=== PATIENT | male | born 1955 | race Caucasian/White ===

== ENCOUNTER 2017-02-01 05:20 | Inpatient (IN) | payer OTHER ==
--- NOTE | 2017-01-29 04:46 | PREOPHP ---
DATE OF ADMISSION: 02/01/2017 The patient is to have surgey with Dr. Oneal at [facility] on 02/01/2017. REASON FOR CONSULTATION: Consultation requested by Dr. Fantasma Oneal for medical evaluation and clearance of a 61-year-old gentleman about to undergo surgery. Thank you Dr. Oneal for allowing us to participate in care of this patient. HISTORY OF PRESENT ILLNESS: Hal Oleary is a 61-year-old gentleman, issues with his left hip had repair of a torn labrum arthroscopically done in 2016, which helped for a while but has been bothering him ever since, and currently is being admitted for a total hip replacement on the left side. PAST SURGICAL HISTORY: Has included appendectomy, the above- mentioned arthroscopic surgery, tonsil and adenoid surgery, a skin graft, a lymph node biopsy, skin cancers removed, as well as a varicocele surgery. He has fractured his right hand. PRIOR HOSPITALIZATIONS: The patient has had no medical hospitalizations. MEDICATIONS: Include the following: Prilosec, Lodine, Flexeril, and periodic pain pills. ALLERGIES: HE IS ALLERGIC OR SENSITIVE TO MORPHINE. SOCIAL HISTORY: The patient is , has 3 daughters and 2 grandchildren. He does not smoke. He drinks alcohol socially. He does drink coffee. He has no difficulty sleeping at night. Currently he is not working. FAMILY HISTORY: Father is alive at 86. He has heart issues and failure. Mother at age 67 of breast cancer and its complications, she also had some heart issues. Two siblings are in good health and alive and well. There is a family history of diabetes, heart cancer, hypertension and stroke. No thyroid issues to his knowledge. REVIEW OF SYSTEMS: HEENT: Has periodic tension headaches. CARDIORESPIRATORY: Denies any significant chest pain; however, does get some dyspepsia. No palpitations or orthopnea. GASTROINTESTINAL: No melena or hematemesis; however, signs and symptoms of hyperacidity. GENITOURINARY: No urgency or frequency. MUSCULOSKELETAL: Positive for left hip pain. NEUROPSYCHIATRIC: Unremarkable. GENERAL HEALTH: As above. PHYSICAL EXAMINATION: VITAL SIGNS: Blood pressure 120/80, pulse 86 and regular, respirations 17, temperature 97.9, height 5 feet 6 inches, weight 174 pounds. GENERAL APPEARANCE: The patient was noted to be a well-developed and well-nourished male, alert and cooperative in no apparent acute distress, oriented to time, place and person. HEENT: Head was atraumatic. The eyes, pupils were equal and reactive to light and accommodation. Fundi were benign. Tympanic membranes were unremarkable. Nose was negative. Mouth was unremarkable. Fair oral hygiene was present. NECK: Was supple without any rigidity. Trachea was midline. Thyroid was unremarkable. Neck veins were flat. Carotid pulses were equal. No bruits were heard. BACK: Back exam was unremarkable. CARDIAC: Chest was symmetrical. BREAST: Breast and axillary exam did not reveal any masses. LUNGS: Clear to percussion and auscultation. HEART: Examination of the heart PMI was at the fifth intercostal space at the midclavicular line. A regular sinus rhythm was noted. No significant murmurs, rubs or gallops being elicited. ABDOMEN: Soft. Good bowel sounds were noted. No significant organomegaly, masses or tenderness. Scar from prior surgery was noted. GENITALIA: Normal male external genitalia. RECTAL: Rectal and prostatic exam per PCP. EXTREMITIES: Did not reveal any clubbing, edema or cyanosis. Peripheral pulses were physiologic. SKIN: Moist and warm without any eruptions. No gross lymphadenopathy was noted. NEUROLOGIC: Grossly intact. DIAGNOSTICS: Review of laboratory and other data revealed the following: The patient's chemistry panel including electrolytes, BUN and creatinine were normal. Liver function tests were basically normal. Random glucose was 126. CBC, UA, PT and PTT were normal. The patient's EKG was normal as was his chest x- ray, and bladder residual was around 50 mL post void. IMPRESSION: 1. Degenerative joint disease left hip. 2. Gastroesophageal reflux disease. 3. History of skin cancers. 4. Stable health. DISCUSSION: Dr. Oneal, I see no contraindications to the patient undergoing current proposed surgery under desired form of anesthesia and feel he is a suitable candidate at this particular point in time, and I will be more than happy to follow him with you during his stay at [facility]. Thank you again Dr. Oneal for allowing us to participate in care of this patient. Dictated By: Parth Rosas MD /meliton/monty /Document#: [id number]
[~2017-02-01] VITALS: Ht 167.6 cm; Wt 78.8 kg
[2017-02-01] VITALS (34 sets, daily range): BP systolic 116–171; BP diastolic 56–83; PULSE 42–64; RESP 8–20; Ht 167.6 cm; Wt 78.8 kg
[2017-02-01] MEDS ORDERED: ETOD500T PO (05:43)
[2017-02-01] MEDS ORDERED: OMEP40CA6 PO (05:43)
[2017-02-01] MEDS ORDERED: HYDR2TAB36 PO (05:43)
[2017-02-01] MEDS ORDERED: GABAPENTIN 300 MG CAP PO ONE (06:00)
[2017-02-01] MEDS ORDERED: TRANEXAMIC ACID 1,000 MG in SOD CHLORIDE 0.9% 100 ML IVPB ONE (06:00)
[2017-02-01] MEDS ORDERED: DEXAMETHASONE 1 MG TAB PO ONE (06:00)
[2017-02-01] MEDS ORDERED: CEFAZOLIN 2 GM/50 ML (PMX) 50 ML IVPB ONE (06:00)
[2017-02-01] MEDS ORDERED: LACTATED RINGER'S 1,000 ML IV* SCH (06:00)
--- NOTE | 2017-02-01 06:46 | HPN ---
Date/Time of Note Date/Time of Note DATE: 02/01/17 TIME: 06:46 Interval H&P Admission Note Pt. seen H&P reviewed: No system changes LUIS ALFREDO BARRETO MD Feb 01, 2017 06:46
[2017-02-01] MEDS ORDERED: morphine SULFATE/PF (10 MG/10 ML) INJ ONE (06:49)
[2017-02-01] MEDS ORDERED: THROMBIN 5000 UNIT VIAL ONE (06:57)
[2017-02-01] MEDS ORDERED: CA CHLORIDE 10% 10 ML SYRINGE ONE (06:57)
[2017-02-01] MEDS ORDERED: SOD CHLORIDE 0.9% 100 ML, TRANEXAMIC ACID 3,000 MG IRR ONE ×2 (07:00)
[2017-02-01] MEDS ORDERED: BUPIVACAINE 0.5% (SDV) 30 ML, morphine SULFATE (PF) 8 MG, EPINEPHrine 0.3 MG, KETOROLAC... IRR SCH ×7 (07:00)
[2017-02-01] MEDS ORDERED: FENTAnyl 50 MCG/ML VIAL ONE (07:31)
[2017-02-01] MEDS ORDERED: METOCLOPRAMIDE 10 MG INJ IV PRN (08:00)
[2017-02-01] MEDS ORDERED: ONDANSETRON 4 MG INJ IV PRN (08:00)
[2017-02-01] MEDS ORDERED: PROCHLORPERAZINE 10 MG INJ IV PRN (08:00)
[2017-02-01] MEDS ORDERED: HYDROmorphONE (0.2 MG/ML) 10ML SYG IV PRN ×2 (08:00)
[2017-02-01] MEDS ORDERED: MEPERIDINE 25 MG INJ IV PRN (08:00)
[2017-02-01] MEDS ORDERED: DIPHENHYDRAMINE 50 MG INJ IV PRN ×2 (08:00→09:30)
[2017-02-01] MEDS ORDERED: FENTAnyl 50 MCG/ML VIAL IV PRN ×2 (08:00)
[2017-02-01] MEDS ORDERED: NEOSTIGMINE 3 MG/3 ML SYRINGE ONE (09:09)
[2017-02-01] MEDS ORDERED: GLYCOPYRROLATE 0.4 MG INJ ONE (09:09)
[2017-02-01] MEDS ORDERED: PROPOFOL 20 ML ONE (09:09)
[2017-02-01] MEDS ORDERED: SUCCINYLCHOLINE CHLORIDE 100 MG/5 ML SYG IV ONE (09:09)
[2017-02-01] MEDS ORDERED: CEFAZOLIN 1 GM INJ ONE (09:09)
[2017-02-01] MEDS ORDERED: LIDOCAINE 2% (SDV) 5 ML INJ ONE (09:09)
[2017-02-01] MEDS ORDERED: ROCURONIUM 50 MG INJ ONE (09:09)
--- NOTE | 2017-02-01 09:14 | OPR ---
Date/Time of Note Date/Time of Note DATE: 02/01/17 TIME: 09:12 Operative Report Procedure Date: Feb 01, 2017 Preoperative Diagnosis Left hip posttraumatic osteoarthritis status post hip arthroscopy Postoperative Diagnosis Left hip status post hip arthroscopy with posttraumatic arthritis Operation Performed Left total hip arthroplasty after hip arthroscopy Surgeon: LUIS ALFREDO BARRETO MD Welder/Fabricator: SHRUTHI NATION MD Anesthesia: general Estimated Blood Loss: 200 - 250 ml's Pt Condition Post Procedure: stable Disposition: PACU Procedure Description TUBE BALANCER SURGEON: Shruthi Nation MD was asked to be present at my request as a result of the complexity associated with this procedure including positioning of the extremity, positioning of the instrumentation and protection of the neurovascular structures. In my opinion, the assistance offered by a surgical training specialist is insufficient and Dr. Nation should be compensated for his time. PROCEDURE IN DETAIL: Following the administration of general endotracheal anesthesia supplemented with a spinal anesthetic, the patient was placed in the supine position. The bilateral lower extremities were then prepped and draped in the usual sterile fashion. A lease purchase truck driver radiograph was obtained for preliminary limb length and femoral size as well as acetabular size. A lateral incision was then made exposing the tensor fascia the fascia was incised the tensor was retracted laterally and the vessels were cauterized. Significant scar tissue was encountered over the anterior capsule secondary to the prior hip arthroscopic procedure. A capsulectomy was then performed and the femoral head was then evaluated severe arthritic changes were noted. A femoral head cut was then made in the appropriate degree of version and inclination. The acetabulum was then exposed capsulectomy and labral ectomy were completed. The central portion was then entered and serially reamed up to the 51 mm size. A Depuy Foley cup which is 52 mm in size with a standard liner was then fit into position with solid fixation. A 30 mm screw was used for additional fixation. Attention was then directed to the femur, the femur was exposed and prepared. The canal was entered and serially reamed up to the 11 mm size. A 11 mm Depuy Corail stem was then inserted with solid fixation. A standard femoral head which was ceramic was then inserted. The leg was taken through full range of motion with no evident instability. In addition, radiographs revealed excellent position with reproduction of the limb lengths within a millimeter. The wound was irrigated thoroughly. The wound was then closed in layers and a Prenio for the final cover. This was watertight. Estimated blood loss was procedure was 250 cc. Postoperative radiographs will be obtained in the recovery room. LUIS ALFREDO BARRETO MD Feb 01, 2017 09:14
--- NOTE | 2017-02-01 09:15 | PDOCDIS ---
Discharge Instructions DIAGNOSIS Discharge Diagnosis Posttraumatic arthritis left hip CONDITION Patient Condition: Good HOME CARE INSTRUCTIONS: Diet Instructions: Regular ACTIVITY: Activity Restrictions: Slowly Increase Activity Keep Limb Elevated Bathing Restrictions: Shower FOLLOW UP/APPOINTMENTS Follow-up Plan 2 weeks SCHOOL/WORK RELEASE May return to School/Work with: With Restrictions School/Work Release Comment: No hip extension for 6 weeks LUIS ALFREDO BARRETO MD Feb 01, 2017 09:15
[2017-02-01] MEDS ORDERED: ACETAMINOPHEN 500 MG TAB PO PRN (09:30)
[2017-02-01] MEDS ORDERED: KETOROLAC 15 MG INJ IV PRN (09:30)
[2017-02-01] MEDS ORDERED: ZOLPIDEM 5 MG TAB PO PRN (09:30)
[2017-02-01] MEDS ORDERED: HYDROmorphONE 2 MG TAB PO PRN (09:30)
[2017-02-01] MEDS ORDERED: MAGNESIUM HYDROXIDE 30ML CUP PO PRN (09:30)
[2017-02-01] MEDS ORDERED: OXYCODONE/ACETAMINOPHEN (5/325) TAB PO PRN ×2 (09:30)
[2017-02-01] MEDS ORDERED: BETHANECHOL 25 MG TAB PO PRN (09:30)
[2017-02-01] MEDS ORDERED: TRANEXAMIC ACID 1,000 MG in SOD CHLORIDE 0.9% 100 ML IV ONE (09:30)
[2017-02-01] MEDS ORDERED: HYDROmorphONE 1 MG/ML SYG IV PRN ×3 (09:30)
[2017-02-01] MEDS: CEFAZOLIN 1 GM/50 ML (PMX) 50 ML IVPB SCH ×2 (10:03→17:57)
--- NOTE | 2017-02-01 10:20 | RADRPT ---
PROCEDURE: XR Pelvis. CLINICAL INDICATION: Postop TECHNIQUE: Single AP view of the pelvis. COMPARISON: No prior studies are available for comparison. FINDINGS: The patient is status post total left hip arthroplasty. Alignment is anatomic. Hardware appears in tact. The remainder of the bones of the pelvis are intact. There is subcutaneous gas overlying the left hip consistent with recent arthroplasty IMPRESSION: 1. Status post total left hip arthroplasty in anatomic alignment. Of a text Medical .Leonidas Salvador MD, MD Date Time Electronically viewed and signed by .Leonidas Salvador MD, on 02/01/2017 10:19 .B/
--- NOTE | 2017-02-01 10:21 | RADRPT ---
PROCEDURE: Fluoroscopic guidance with radiographic images during total left hip arthroplasty. CLINICAL INDICATION: Left hip arthroplasty TECHNIQUE: 12 images were obtained during left hip arthroplasty. COMPARISON: None available FINDINGS: 58 seconds of fluoroscopy time was utilized during left hip arthroplasty. 12 radiographs were obtai ana during the procedure in progress for guidance. Multiple images show progressive left hip arthro plasty. Procedure was performed by Dr. Oneal. IMPRESSION: 1. Fluoroscopic guidance with x-ray images obtained for guidance during left hip arthroplasty. RPTAT: KK .Leonidas Salvador MD, MD Date Time Electronically viewed and signed by .Leonidas Salvador MD, on 02/01/2017 10:21 .B/
[2017-02-01 10:25] LABS: BASOPHILS % 0.3 % (0.0-2.0); EOSINOPHILS # 0.1 10^3/ul (0.0-0.5); EOSINOPHILS % 0.4 % (0.0-7.0); HEMATOCRIT 33.5 % (42.0-52.0); HEMOGLOBIN 11.6 g/dl (14.0-18.0); LYMPHOCYTES # 0.8 10^3/ul (0.8-2.9); LYMPHOCYTES % 6.7 % (15.0-51.0); MEAN CORPUSCULAR HEMOGLOBIN 32.8 pg (29.0-33.0); MEAN CORPUSCULAR HGB CONC 34.6 g/dl (32.0-37.0); MEAN CORPUSCULAR VOLUME 94.6 fl (82.0-101.0); MEAN PLATELET VOLUME 9.3 fl (7.4-10.4); MONOCYTE # 0.4 10^3/ul (0.3-0.9); MONOCYTES % 2.8 % (0.0-11.0); NEUTROPHIL # 11.1 10^3/ul (1.6-7.5); NEUTROPHILS % 89.1 % (39.0-77.0); PLATELET COUNT 261 10^3/UL (140-415); RED BLOOD COUNT 3.54 10^6/ul (4.70-6.10); RED CELL DISTRIBUTION WIDTH 12.1 % (11.5-14.5); WHITE BLOOD COUNT 12.5 10^3/ul (4.8-10.8)
[2017-02-01] MEDS: LACTATED RINGER'S 1,000 ML IV SCH ×3 (10:58→21:30)
[2017-02-01] MEDS: DEXAMETHASONE 2 MG TAB PO SCH ×2 (12:00→17:57)
[2017-02-01] MEDS: ONDANSETRON 4 MG INJ IV PRN ×2 (12:00→17:57)
--- NOTE | 2017-02-01 12:56 | CONS ---
Date/Time of Note Date/Time of Note DATE: 02/01/17 TIME: 12:49 Consult Date/Type/Reason Admit Date/Time Feb 01, 2017 at 05:20 Initial Consult Date 01/26/2017 Type of Consultation: internal medicine Reason for Consultation preoperative medical evaluation and clearance Ordering Provider: LUIS ALFREDO BARRETO MD Subjective seen in recovery awake recognizes me no particular complaints Objective Vital Signs Date Time Temp Pulse Resp B/P Pulse Ox O2 Delivery O2 Flow Rate FiO2 02/01/17 11:22 97.7 47 20 135/61 99 02/01/17 10:51 Nasal Cannula 2.0 Exam heent-negative lungs clear heart6 rsr Results/Medications Result Diagram: 02/01/17 1011 Results 24 hrs Laboratory Tests Test 02/01/17 10:11 White Blood Count 12.5 H Red Blood Count 3.54 L Hemoglobin 11.6 L Hematocrit 33.5 L Mean Corpuscular Volume 94.6 Mean Corpuscular Hemoglobin 32.8 Mean Corpuscular Hemoglobin Concent 34.6 Red Cell Distribution Width 12.1 Platelet Count 261 Mean Platelet Volume 9.3 Neutrophils % 89.1 H Lymphocytes % 6.7 L Monocytes % 2.8 Eosinophils % 0.4 Basophils % 0.3 Nucleated Red Blood Cells % 0.0 Neutrophils # 11.1 H Lymphocytes # 0.8 Monocytes # 0.4 Eosinophils # 0.1 Basophils # 0.0 Nucleated Red Blood Cells # 0.0 Medications Current Medications Lactated Ringer's (Lr) 1,000 ml @ 20 mls/hr Q24H IV* Last administered on 02/01t 06:14; Admin Dose 20 MLS/HR; Start 02/01/17 at 06:00; Stop 02/03/17 at 07: 59 Hydromorphone HCl (Dilaudid) 2 mg Q6H PRN PO PAIN; Start 02/01/17 at 09:30 Pantoprazole (Protonix Tab) 40 mg DAILY@06 PO ; Start 02/02/17 at 06:00 Senna/Docusate Sodium (Senokot-S) 1 tab BID PO ; Start 02/01/17 at 21:00 Simethicone (Mylicon) 80 mg TID PRN PO DISTENSION/GAS/BLOATING; Start 02/01/17 at 09:30 Magnesium Hydroxide (Milk Of Mag) 30 ml BID PRN PO CONSTIPATION; Start at 09:30 Acetaminophen (Tylenol Tab) 1,000 mg Q4H PRN PO TEMP GREATER THAN 100.4F; Start 02/01/17 at 09:30 Dexamethasone (Decadron) 2 mg Q6 PO ; Start 02/01/17 at 12:00; Stop 02/02/17 at 06:01 Gabapentin (Neurontin) 300 mg HS PO ; Start 02/01/17 at 21:00 Oxycodone/ Acetaminophen (Percocet (5/ 325)) 1 tab Q4H PRN PO PAIN LEVEL 1-5; Start 02/01/17 at 09:30 Oxycodone/ Acetaminophen (Percocet (5/ 325)) 2 tab Q4H PRN PO PAIN LEVEL 6-10; Start 02/01/17 at 09:30 Ketorolac Tromethamine (Toradol) 15 mg Q6H PRN IV PAIN; Start 02/01/17 at 09:30 ; Stop 02/04/17 at 09:29 Ondansetron HCl (Zofran Inj) 4 mg Q6H PRN IV NAUSEA AND/OR VOMITING Last administered on 02/01/17 12:00; Admin Dose 4 MG; Start 02/01/17 at 09:30 Diphenhydramine HCl (Benadryl) 25 mg Q6H PRN IV PRURITUS; Start 02/01/17 at 09: 30 Aspirin 81 mg 81 mg DAILY PO ; Start 02/02/17 at 09:00 Lactated Ringer's (Lr) 1,000 ml @ 100 mls/hr Q10H IV Last administered on 02/01 10:58; Admin Dose 100 MLS/HR; Start 02/01/17 at 09:06 Hydromorphone HCl (Dilaudid) 0.5 mg Q6H PRN IV PAIN; Start 02/01/17 at 09:30 Hydromorphone HCl (Dilaudid) 1 mg Q6H PRN IV PAIN; Start 02/01/17 at 09:30 Hydromorphone HCl 0.5 mg 0.5 mg Q4H PRN IV PAIN; Start 02/01/17 at 09:30 Cefazolin Sodium (Ancef 1 Gm/50 ml (Pmx)) 50 ml @ 100 mls/hr Q8H IVPB Last administered on 02/01/17t 10:03; Admin Dose 100 MLS/HR; Start 02/01/17 at 10:00 ; Stop 02/02/17 at 02:29 Assessment/Plan Chief Complaint/Hosp Course patient post op total hip replacement left hip.medically stable post op Problems: Additional Assessment/Plan will follow with you---thank you ALAN Godfrey MD Feb 01, 2017 12:56
[2017-02-01] MEDS ORDERED: CEFAZOLIN 1 GM/50 ML (PMX) 50 ML IVPB SCH (14:00)
[2017-02-01] MEDS: SENNA/DOCUSATE NA (8.6MG/50MG) TAB PO SCH (20:26)
[2017-02-01] MEDS ORDERED: GABAPENTIN 300 MG CAP PO SCH (21:00)
[2017-02-02] MEDS: DEXAMETHASONE 2 MG TAB PO SCH ×2 (00:08→06:05)
[2017-02-02] MEDS: ONDANSETRON 4 MG INJ IV PRN (00:09)
[2017-02-02] MEDS: CEFAZOLIN 1 GM/50 ML (PMX) 50 ML IVPB SCH (02:40)
[2017-02-02 05:20] VITALS: BP 121/62; PULSE 67; RESP 18
[2017-02-02 05:41] LABS: ABNORMAL IP MESSAGE 1; BASOPHILS % 0.2 % (0.0-2.0); EOSINOPHILS % 0.2 % (0.0-7.0); HEMATOCRIT 30.1 % (42.0-52.0); LYMPHOCYTES # 0.6 10^3/ul (0.8-2.9); LYMPHOCYTES % 5.9 % (15.0-51.0); MEAN CORPUSCULAR HEMOGLOBIN 31.8 pg (29.0-33.0); MEAN CORPUSCULAR HGB CONC 33.2 g/dl (32.0-37.0); MEAN CORPUSCULAR VOLUME 95.9 fl (82.0-101.0); MONOCYTE # 0.6 10^3/ul (0.3-0.9); MONOCYTES % 6.2 % (0.0-11.0); NEUTROPHIL # 8.7 10^3/ul (1.6-7.5); NEUTROPHILS % 87.1 % (39.0-77.0); PLATELET COUNT 220 10^3/UL (140-415); POSITIVE DIFF @See below; RED BLOOD COUNT 3.14 10^6/ul (4.70-6.10); RED CELL DISTRIBUTION WIDTH 12.3 % (11.5-14.5)
[2017-02-02] MEDS ORDERED: PANTOPRAZOLE (EC) 40 MG TAB PO SCH (06:00)
--- NOTE | 2017-02-02 06:54 | PN ---
Date/Time of Note Date/Time of Note DATE: 02/02/17 TIME: 06:53 24 hour Interval Summary Hal is awake and alert with no complaints this morning. His nausea has resolved. Physical Exam Physical examination reveals that his left lower extremity is neurologically intact. He has no signs of DVT. His wound is clean and dry. His Maya has been removed. Vital Signs Date Time Temp Pulse Resp B/P Pulse Ox O2 Delivery O2 Flow Rate FiO2 02/02/17 05:20 98.3 67 18 121/62 98 Nasal Cannula 2.0 Intake and Output 02/01/17 02/01/17 02/02/17 15:00 23:00 07:00 Intake Total 110 ml 1350 ml 1250 ml Output Total 300 ml 600 ml 780 ml Balance -190 ml 750 ml 470 ml VTE Prophylaxis VTE Prophylaxis Intervention: anti-embolic stocking Lines/Catheters IV Catheter Type: Saline Lock Maya in Place: No Results Result Diagram: 02/02/17 0442 Results 24hrs Laboratory Tests Test 02/01/17 10:11 02/02/17 04:42 White Blood Count 12.5 H 10.0 Red Blood Count 3.54 L 3.14 L Hemoglobin 11.6 L 10.0 L Hematocrit 33.5 L 30.1 L Mean Corpuscular Volume 94.6 95.9 Mean Corpuscular Hemoglobin 32.8 31.8 Mean Corpuscular Hemoglobin Concent 34.6 33.2 Red Cell Distribution Width 12.1 12.3 Platelet Count 261 220 Mean Platelet Volume 9.3 10.0 Neutrophils % 89.1 H 87.1 H Lymphocytes % 6.7 L 5.9 L Monocytes % 2.8 6.2 Eosinophils % 0.4 0.2 Basophils % 0.3 0.2 Nucleated Red Blood Cells % 0.0 0.0 Neutrophils # 11.1 H 8.7 H Lymphocytes # 0.8 0.6 L Monocytes # 0.4 0.6 Eosinophils # 0.1 0.0 Basophils # 0.0 0.0 Nucleated Red Blood Cells # 0.0 0.0 Assessment/Plan Chief Complaint/Hosp Course patient post op total hip replacement left hip.medically stable post op Problems: Assessment/Plan Assessment: He will begin physical therapy and be discharged following clearance by that department. He will follow-up in the office in 2 weeks Medications Medications Home Meds Reported Medications Etodolac (Lodine) 500 Mg Tablet, 500 MG PO BID Y for IGOR, TAB 02/01/17 Omeprazole* (Omeprazole*) 40 Mg Capsule.dr, 40 MG PO DAILY, #30 CAP 02/01/17 Hydromorphone Hcl* (Dilaudid*) 2 Mg Tablet, 2 MG PO Q6H Y for PAIN, TAB 02/01/17 LUIS ALFREDO BARRETO MD Feb 02, 2017 06:54
--- NOTE | 2017-02-02 06:55 | DS ---
Date/Time of Note Date/Time of Note DATE: 02/02/17 TIME: 06:54 Discharge Summary Admission/Discharge Info Admit Date/Time Feb 01, 2017 at 05:20 Discharge Date/Time February 02, 2017 following clearance by physical therapy Discharge Diagnosis Posttraumatic arthritis left hip Patient Condition: Good Procedures Left total hip arthroplasty Hx of Present Illness Pain and stiffness following work injury. Hospital Course patient post op total hip replacement left hip.medically stable post op he underwent an uncomplicated procedure. On postoperative day #1 he was stable and discharged. Home Meds Reported Medications Etodolac (Lodine) 500 Mg Tablet, 500 MG PO BID Y for IGOR, TAB 02/01/17 Omeprazole* (Omeprazole*) 40 Mg Capsule.dr, 40 MG PO DAILY, #30 CAP 02/01/17 Hydromorphone Hcl* (Dilaudid*) 2 Mg Tablet, 2 MG PO Q6H Y for PAIN, TAB 02/01/17 Primary Care Provider Not On Staff Doctor Pending Labs Laboratory Tests Test 02/01/17 10:11 02/02/17 04:42 White Blood Count 12.510^3/ul (4.8-10.8) 10.010^3/ul (4.8-10.8) Red Blood Count 3.5410^6/ul (4.70-6.10) 3.1410^6/ul (4.70-6.10) Hemoglobin 11.6g/dl (14.0-18.0) 10.0g/dl (14.0-18.0) Hematocrit 33.5% (42.0-52.0) 30.1% (42.0-52.0) Mean Corpuscular Volume 94.6fl (82.0-101.0) 95.9fl (82.0-101.0) Mean Corpuscular Hemoglobin 32.8pg (29.0-33.0) 31.8pg (29.0-33.0) Mean Corpuscular Hemoglobin Concent 34.6g/dl (32.0-37.0) 33.2g/dl (32.0-37.0) Red Cell Distribution Width 12.1% (11.5-14.5) 12.3% (11.5-14.5) Platelet Count 40891^3/UL (140-415) 86240^3/UL (140-415) Mean Platelet Volume 9.3fl (7.4-10.4) 10.0fl (7.4-10.4) Neutrophils % 89.1% (39.0-77.0) 87.1% (39.0-77.0) Lymphocytes % 6.7% (15.0-51.0) 5.9% (15.0-51.0) Monocytes % 2.8% (0.0-11.0) 6.2% (0.0-11.0) Eosinophils % 0.4% (0.0-7.0) 0.2% (0.0-7.0) Basophils % 0.3% (0.0-2.0) 0.2% (0.0-2.0) Nucleated Red Blood Cells % 0.0/100WBC (0.0-0.0) 0.0/100WBC (0.0-0.0) Neutrophils # 11.110^3/ul (1.6-7.5) 8.710^3/ul (1.6-7.5) Lymphocytes # 0.810^3/ul (0.8-2.9) 0.610^3/ul (0.8-2.9) Monocytes # 0.410^3/ul (0.3-0.9) 0.610^3/ul (0.3-0.9) Eosinophils # 0.110^3/ul (0.0-0.5) 0.010^3/ul (0.0-0.5) Basophils # 0.010^3/ul (0.0-0.1) 0.010^3/ul (0.0-0.1) Nucleated Red Blood Cells # 0.010^3/ul (0.0-0.0) 0.010^3/ul (0.0-0.0) LUIS ALFREDO BARRETO MD Feb 02, 2017 06:55
[2017-02-02 07:28] VITALS: BP 109/56; RESP 18
--- NOTE | 2017-02-02 08:00 | CONS ---
Date/Time of Note Date/Time of Note DATE: 02/02/17 TIME: 07:56 Consult Date/Type/Reason Admit Date/Time Feb 01, 2017 at 05:20 Initial Consult Date 01/26/2017 Type of Consultation: internal medicine Reason for Consultation medical f/u Ordering Provider: LUIS ALFREDO BARRETO MD Subjective alert doing relatively well no complaits other than a little pian level 2or 3 Objective Vital Signs Date Time Temp Pulse Resp B/P Pulse Ox O2 Delivery O2 Flow Rate FiO2 02/02/17 07:28 98.8 49 18 109/56 98 02/02/17 05:20 Nasal Cannula 2.0 Intake and Output 02/01/17 02/01/17 02/02/17 15:00 23:00 07:00 Intake Total 110 ml 1350 ml 1250 ml Output Total 300 ml 600 ml 780 ml Balance -190 ml 750 ml 470 ml Exam heent neg. lungs clear heart rsr abd. solt Results/Medications Result Diagram: 02/02/17 0442 Results 24 hrs Laboratory Tests Test 02/01/17 10:11 02/02/17 04:42 White Blood Count 12.5 H 10.0 Red Blood Count 3.54 L 3.14 L Hemoglobin 11.6 L 10.0 L Hematocrit 33.5 L 30.1 L Mean Corpuscular Volume 94.6 95.9 Mean Corpuscular Hemoglobin 32.8 31.8 Mean Corpuscular Hemoglobin Concent 34.6 33.2 Red Cell Distribution Width 12.1 12.3 Platelet Count 261 220 Mean Platelet Volume 9.3 10.0 Neutrophils % 89.1 H 87.1 H Lymphocytes % 6.7 L 5.9 L Monocytes % 2.8 6.2 Eosinophils % 0.4 0.2 Basophils % 0.3 0.2 Nucleated Red Blood Cells % 0.0 0.0 Neutrophils # 11.1 H 8.7 H Lymphocytes # 0.8 0.6 L Monocytes # 0.4 0.6 Eosinophils # 0.1 0.0 Basophils # 0.0 0.0 Nucleated Red Blood Cells # 0.0 0.0 Medications Current Medications Lactated Ringer's (Lr) 1,000 ml @ 20 mls/hr Q24H IV* Last administered on 02/01t 06:14; Admin Dose 20 MLS/HR; Start 02/01/17 at 06:00; Stop 02/03/17 at 07: 59 Hydromorphone HCl (Dilaudid) 2 mg Q6H PRN PO PAIN; Start 02/01/17 at 09:30 Pantoprazole (Protonix Tab) 40 mg DAILY@06 PO Last administered on 02/02/17 06 :05; Admin Dose 40 MG; Start 02/02/17 at 06:00 Senna/Docusate Sodium (Senokot-S) 1 tab BID PO Last administered on 02/01/17 20:26; Admin Dose 1 TAB; Start 02/01/17 at 21:00 Simethicone (Mylicon) 80 mg TID PRN PO DISTENSION/GAS/BLOATING; Start 02/01/17 at 09:30 Magnesium Hydroxide (Milk Of Mag) 30 ml BID PRN PO CONSTIPATION; Start at 09:30 Acetaminophen (Tylenol Tab) 1,000 mg Q4H PRN PO TEMP GREATER THAN 100.4F; Start 02/01/17 at 09:30 Gabapentin (Neurontin) 300 mg HS PO Last administered on 02/01/17 20:25; Admin Dose 300 MG; Start 02/01/17 at 21:00 Oxycodone/ Acetaminophen (Percocet (5/ 325)) 1 tab Q4H PRN PO PAIN LEVEL 1-5; Start 02/01/17 at 09:30 Oxycodone/ Acetaminophen (Percocet (5/ 325)) 2 tab Q4H PRN PO PAIN LEVEL 6-10; Start 02/01/17 at 09:30 Ketorolac Tromethamine (Toradol) 15 mg Q6H PRN IV PAIN Last administered on 02:42; Admin Dose 15 MG; Start 02/01/17 at 09:30; Stop 02/04/17 at 09:29 Ondansetron HCl (Zofran Inj) 4 mg Q6H PRN IV NAUSEA AND/OR VOMITING Last administered on 02/02/17 00:09; Admin Dose 4 MG; Start 02/01/17 at 09:30 Diphenhydramine HCl (Benadryl) 25 mg Q6H PRN IV PRURITUS; Start 02/01/17 at 09: 30 Aspirin 81 mg 81 mg DAILY PO ; Start 02/02/17 at 09:00 Lactated Ringer's (Lr) 1,000 ml @ 100 mls/hr Q10H IV Last administered on 02/01t 21:30; Admin Dose 100 MLS/HR; Start 02/01/17 at 09:06 Hydromorphone HCl (Dilaudid) 0.5 mg Q6H PRN IV PAIN; Start 02/01/17 at 09:30 Hydromorphone HCl (Dilaudid) 1 mg Q6H PRN IV PAIN; Start 02/01/17 at 09:30 Hydromorphone HCl (Dilaudid) 0.5 mg Q4H PRN IV PAIN; Start 02/01/17 at 09:30 Assessment/Plan Chief Complaint/Hosp Course patient post op total hip replacement left hip.medically stable post op Problems: Additional Assessment/Plan suggest iron and vits re anemia plan per medically stable thank you ALAN Godfrey MD Feb 02, 2017 08:00
[2017-02-02] MEDS: SENNA/DOCUSATE NA (8.6MG/50MG) TAB PO SCH (08:50)
[2017-02-02] MEDS ORDERED: ASPIRIN 81 MG TAB PO SCH (09:00)
--- NOTE | 2017-02-02 14:33 | CONS ---
Date/Time of Note Date/Time of Note DATE: 02/02/17 TIME: 14:30 Consultation Date/Type/Reason Admit Date/Time Feb 01, 2017 at 05:20 Initial Consult Date 02/02/17 Type of Consultation: Anesthesiology Reason for Consultation Follow up Referring Provider: LUIS ALFREDO BARRETO MD 24 HR Interval Summary Free Text/Dictation Pt seen and examined at bedside is POD#1 s/p Left Total Hip Replacement. Pt received spinal Duramorph and states he only has minimal pain. Lower extremities have no numbness. No N/V/D/C/RIOJAS. Will continue to follow. Constitutional: improved, no complaints Exam/Review of Systems Vital Signs Vitals Vital Signs Date Time Temp Pulse Resp B/P Pulse Ox O2 Delivery O2 Flow Rate FiO2 02/02/17 07:28 98.8 49 18 109/56 98 02/02/17 05:20 Nasal Cannula 2.0 Intake and Output 02/01/17 02/01/17 02/02/17 15:00 23:00 07:00 Intake Total 110 ml 1350 ml 1250 ml Output Total 300 ml 600 ml 780 ml Balance -190 ml 750 ml 470 ml Results Result Diagram: 02/02/17 0442 Results 24 hrs Laboratory Tests Test 02/02/17 04:42 White Blood Count 10.0 Red Blood Count 3.14 L Hemoglobin 10.0 L Hematocrit 30.1 L Mean Corpuscular Volume 95.9 Mean Corpuscular Hemoglobin 31.8 Mean Corpuscular Hemoglobin Concent 33.2 Red Cell Distribution Width 12.3 Platelet Count 220 Mean Platelet Volume 10.0 Neutrophils % 87.1 H Lymphocytes % 5.9 L Monocytes % 6.2 Eosinophils % 0.2 Basophils % 0.2 Nucleated Red Blood Cells % 0.0 Neutrophils # 8.7 H Lymphocytes # 0.6 L Monocytes # 0.6 Eosinophils # 0.0 Basophils # 0.0 Nucleated Red Blood Cells # 0.0 FREDDIE DAMIAN Feb 02, 2017 14:33
== END 2017-02-02 13:07 | disposition home or self-care (01) | DRG 470 ==
LOC: REC 05:20 → MS1 10:49
PROVIDERS: ADMIT Orthopaedic Surgery; ATTEND Orthopaedic Surgery
PROC: 0SRB04Z Replacement of Left Hip Joint with Ceramic on Polyethylene Synthetic Substitute, Open Approach (ICD-10-PCS; principal; 2017-02-01 07:00)
DX: M16.52 Unilateral post-traumatic osteoarthritis, left hip (principal); K21.9 Gastro-esophageal reflux disease without esophagitis; Z85.828 Personal history of other malignant neoplasm of skin
CPT/HCPCS: 72170; 73530; 85025; 86999; 97163; C1713; C1776; J0171; J0690; J0735; J1885; J2274; J2405; J2710; J3010; J3370; J7120; J7999

== ENCOUNTER 2018-05-09 05:33 | Inpatient (IN) | END 2018-05-10 10:15 | disposition home or self-care (01) | DRG 483 ==